=== PATIENT | male | born 1975 | race African-American/Black ===

== ENCOUNTER 2019-08-30 23:00 | Emergency (ER) | payer OTHER ==
[~2019-08-30] VITALS: Ht 190.5 cm; Wt 113.4 kg
[2019-08-31 01:23] VITALS: BP 136/96
== END 2019-08-31 01:24 | disposition home or self-care (01) ==
LOC: ER 23:00
DX: S61.012A Laceration without foreign body of left thumb without damage to nail, initial encounter (principal); X58.XXXA Exposure to other specified factors, initial encounter; Y93.89 Activity, other specified; Y92.89 Other specified places as the place of occurrence of the external cause; Y99.8 Other external cause status

== ENCOUNTER 2019-09-12 15:38 | Emergency (ER) | payer OTHER ==
[~2019-09-12] VITALS: Ht 190.5 cm; Wt 113.4 kg
[2019-09-12 15:40] VITALS: BP 127/82
== END 2019-09-12 16:03 | disposition home or self-care (01) ==
LOC: ER 15:38
DX: S61.412D Laceration without foreign body of left hand, subsequent encounter (principal); X58.XXXD Exposure to other specified factors, subsequent encounter